=== PATIENT | female | born 1975 | race Caucasian/White ===

== ENCOUNTER 2017-04-21 10:13 | Emergency (ER) | payer MEDICARE, OTHER | END 2017-04-21 11:17 | disposition home or self-care (01) | LOC: ER1 10:13 | DX: H92.02 Otalgia, left ear (principal); R59.0 Localized enlarged lymph nodes; I10 Essential (primary) hypertension; Z88.6 Allergy status to analgesic agent; Z79.899 Other long term (current) drug therapy | CPT/HCPCS: 36415; 85025; 87081; 87880; 99282; 99283 ==

== ENCOUNTER 2021-06-05 10:14 | Emergency (ER) | payer OTHER ==
[~2021-06-05 10:14] MED LIST: EXPECTORANT200 MG PO; FLONASE 0.05% N16 GM; NORCO 7.5-3251 EACH PO; SUDAFED 60 MG T60 MG PO; TESSALON PERLE100 MG PO; ZYRTEC10 MG PO
== END 2021-06-05 12:16 | disposition home or self-care (01) ==
LOC: ER1 10:14
DX: U07.1 COVID-19 (principal); Z88.6 Allergy status to analgesic agent
CPT/HCPCS: 99283; U0002

== ENCOUNTER 2021-06-13 08:20 | Inpatient (IN) | payer OTHER ==
[~2021-06-13] VITALS: Ht 157.5 cm; Wt 97.1 kg
[2021-06-13 10:21] LABS: HEMOGLOBIN 12.4 gm/dl (12.3-15.3); RED BLOOD COUNT 4.6 M/UL (4.00-5.10); WHITE BLOOD COUNT 3.3 K/UL (4.5-11.0)
[2021-06-13 10:52] LABS: BUN/CREATININE RATIO 16 (0-10)
[2021-06-13] MEDS ORDERED: WELLBUTRIN SR150 MG PO (14:40)
[2021-06-13] MEDS ORDERED: TRAZODONE HCL100 MG PO (14:41)
[2021-06-13] MEDS ORDERED: IPRAT-ALBUT 0.5-3 ML NEB (14:41)
[2021-06-13] MEDS ORDERED: MULTIVITAMIN1 EACH PO (15:09)
[2021-06-14 04:23] LABS: HEMOGLOBIN 12.8 gm/dl (12.3-15.3); RED BLOOD COUNT 4.58 M/UL (4.00-5.10)
[2021-06-14 08:17] LABS: BUN/CREATININE RATIO 22 (0-10)
--- NOTE | 2021-06-15 11:56 | NUR ---
PATIENTS ROOM AIR O2 SAT IS 88%.
[2021-06-16 06:52] LABS: HEMOGLOBIN 12.9 gm/dl (12.3-15.3); RED BLOOD COUNT 4.83 M/UL (4.00-5.10); WHITE BLOOD COUNT 7.1 K/UL (4.5-11.0)
[2021-06-16 07:14] LABS: BUN/CREATININE RATIO 22 (0-10)
[2021-06-16] MEDS ORDERED: TESSALON PERLE100 MG PO (09:22)
[2021-06-16] MEDS ORDERED: DECADRON6 MG PO (09:22)
== END 2021-06-16 12:33 | disposition home or self-care (01) | DRG 177 ==
LOC: ER1 08:20 → M/S 13:38 → CDU 13:38 → M/S 06-14 14:07
PROVIDERS: Physician Assistant; ADMIT Internal Medicine Infectious Disease
PROC: XW033E5 Introduction of Remdesivir Anti-infective into Peripheral Vein, Percutaneous Approach, New Technology Group 5 (ICD-10-PCS; principal; 2021-06-13)
PROC: 3E0333Z Introduction of Anti-inflammatory into Peripheral Vein, Percutaneous Approach (ICD-10-PCS; 2021-06-13)
PROC: 8E0ZXY6 Isolation (ICD-10-PCS; 2021-06-14)
DX: U07.1 COVID-19 (principal); J12.82 Pneumonia due to coronavirus disease 2019; J96.01 Acute respiratory failure with hypoxia; D61.818 Other pancytopenia; A08.39 Other viral enteritis; F41.1 Generalized anxiety disorder; K21.9 Gastro-esophageal reflux disease without esophagitis; F32.9 Major depressive disorder, single episode, unspecified; Z82.49 Family history of ischemic heart disease and other diseases of the circulatory system; Z90.710 Acquired absence of both cervix and uterus; Z98.84 Bariatric surgery status; Z88.5 Allergy status to narcotic agent; Z88.8 Allergy status to other drugs, medicaments and biological substances
CPT/HCPCS: 36415; 36600; 71045; 80053; 82550; 82553; 82803; 83874; 84484; 85025; 85379; 86140; 93005; 94640; 94664; 94760; 99285; J1100; J1650; J7030; J7120; Q9967

== ENCOUNTER 2022-06-30 22:26 | Emergency (ER) | payer MEDICARE ==
[~2022-06-30 22:26] MED LIST changes: +DECADRON6 MG PO; +IPRAT-ALBUT 0.5-3 ML NEB; +MULTIVITAMIN1 EACH PO; +TRAZODONE HCL100 MG PO; +WELLBUTRIN SR150 MG PO
[2022-06-30 23:52] LABS: HEMOGLOBIN 13.5 gm/dl (12.3-15.3); RED BLOOD COUNT 4.7 M/UL (4.00-5.10)
[2022-07-01] MEDS ORDERED: MACROBID 100 M100 MG PO (00:26)
== END 2022-07-01 01:05 | disposition home or self-care (01) ==
LOC: ER1 22:26
PROVIDERS: Nurse Practitioner
DX: N39.0 Urinary tract infection, site not specified (principal); I10 Essential (primary) hypertension; Z90.710 Acquired absence of both cervix and uterus
CPT/HCPCS: 80053; 81001; 85025; 87077; 87086; 87186; 96372; 99283; J0696